=== PATIENT | female | born 2000 | race Caucasian/White ===

== ENCOUNTER 2022-12-28 18:18 | Emergency (ER) | payer BC, OTHER ==
[2022-12-28 18:41] VITALS: BP 126/75; PULSE 76; RESP 16; TEMP 97.9; BMI 24.7
[2022-12-28] MEDS ORDERED: CEPHALEXIN MONOHYDRATE 500 MG CAPSULE (UD) PO ONE (19:58)
[2022-12-28] MEDS ORDERED: CEPHALEXIN MONOHYDRATE 500 MG CAPSULE (UD) ONE (20:01)
== END 2022-12-28 20:21 | disposition home or self-care (01) ==
LOC: JERFT 18:18
DX: N61.0 Mastitis without abscess (principal)
CPT/HCPCS: 99283-25